=== PATIENT | female | born 2000 | race Caucasian/White ===

== ENCOUNTER 2021-10-22 15:15 | Emergency (ER) | payer OTHER ==
[2021-10-22] MEDS ORDERED: Sodium Chloride 0.9% 1000 ML 1,000 ML IV STA (15:35)
[2021-10-22] MEDS ORDERED: Sodium Chloride 0.9% 1000 ML 1,000 ML ONE (15:54)
[2021-10-22 16:00] LABS: Absolute Neutrophil Ct (ANC) 6.65 x10^3/uL (1.4-6.9); Basophil (Absolute #) 0.01 x10^3/uL (0-0.4); Eosinophil % 0.6 % (0.00-5.0); Eosinophil (Absolute #) 0.05 x10^3/uL (0-0.5); Hemoglobin 12.5 g/dL (12.0-16.0); Lymphocyte (Absolute #) 1.41 x10^3/uL (1.0-4.6); Lymphocytes % 16.1 % (24.0-44.0); Mean Cell Volume 90.9 fL (78-100); Mean Corpuscular Hemoglobin 31.6 pg (26-32); Mean Corpuscular Hgb Concent. 34.7 g/dL (32-36); Mean Platelet Volume 9.4 fL (7.5-11.0); Monocyte (Absolute #) 0.61 x10^3/uL (0.0-1.3); Platelet Count 225 x10^3/uL (150-450); Red Blood Count 3.96 x10^6/uL (4.1-5.4); Red Cell Distribution Width 12.3 % (11.5-14.0); White Blood Count 8.8 x10^3/uL (4.0-10.5)
[2021-10-22 16:04] LABS: Appearance CLEAR (CLEAR); Bilirubin NEGATIVE (NEGATIVE); Dipstick done @ ? MAIN LAB; Epithelial Cells RARE /HPF (FEW); Glucose NEGATIVE (NEGATIVE); Ketones NEGATIVE (NEGATIVE); Mucus MODERATE /HPF (NEGATIVE); Nitrite NEGATIVE (NEGATIVE); Ph 5.5 (5-6); Protein,Urine Dip TRACE (Negative); RBC NEGATIVE Ery/ul (0-5); Specific Gravity >=1.030 (1.005-1.025); Urobilinogen 0.2 mg/dL (0-1)
[2021-10-22 16:07] LABS: Urine Cultured Indicated? NO
[2021-10-22 16:14] LABS: ALBUMIN 4.2 g/dL (3.5-5.0); ALKALINE PHOSPHATASE 115 U/L (38-126); ANION GAP 13.2 MEQ/L (5-15); BLOOD UREA NITROGEN 10 mg/dL (7-17); CHLORIDE 104 mmol/L (98-107); Calcium 8.9 mg/dL (8.4-10.2); Carbon Dioxide 23 mmol/L (22-30); Creatinine 1 0.66 mg/dL (0.52-1.04); EST GLOMERULAR FILTRATION RATE > 60.0 ML/MIN; Glucose 112 mg/dL (74-106); Potassium 3.9 mmol/L (3.5-5.1); SGOT/AST 20 U/L (14-36); SGPT/ALT 14 U/L (0-35); SODIUM 137 mmol/L (137-145); Total Protein 7.3 g/dL (6.3-8.2)
--- NOTE | 2021-10-22 16:48 | XRAY ---
Exam: OB ultrasound less than 14 weeks from 10/22/2021. Comparison: None. Indication: Pelvic cramping in 21-year-old female who believes she is 6 weeks . Findings: Transabdominal images reveal a small gestational sac within the upper uterine segment with a mean diameter of 0.85 cm consistent with a gestational age of 5 weeks, 3 days plus or -3 days for an estimated due date of 06/21/2022. I do not see an intrauterine pole or heartbeat at this time. No definite fluid is seen within the lower endometrial canal. Both maternal ovaries appear of normal size, shape, and echogenicity. No abnormal adnexal mass or free intraperitoneal fluid is seen. Impression: 1. There appears to be a very small gestational sac within the upper uterine segment measuring a mean diameter 0.85 cm. No definite pole or cardiac activity is seen as of yet. Average gestational sac diameter suggests a gestational age of 5 weeks, 3 days. 2. The maternal ovaries appear unremarkable. 3. No free fluid is seen within the maternal cul-de-sac.
[2021-10-22 16:59] VITALS: BP 105/72
[2021-10-22 18:26] VITALS: PULSE 111; O2SAT 98
--- NOTE | 2021-10-24 | ERPHSYRPT ---
- History of Present Illness Time Seen by Provider: 10/22/21 15:49 Source: patient Exam Limitations: no limitations Patient Subjective Stated Complaint: Pt states "I called my ob and explained to them I have been getting dizzy and weak and they said I am probably dehydrated and to come to the ed. I am 6 and a half weeks and I have an 8 month old I am breast feeding." Triage Nursing Assessment: Pt presented alert and oriented X 3, skin wpd Pt ambulates with an upright steady gait, able to speak in clear full sentences pt in no apaprent respiratory distress. pt resting comfortably on the bed. Physician History: This's a 21 yr old pt. presenting to ED with c/o being intermittently dizzy, lightheaded since this am - She is a at 6.5 weeks of gestatio, has called OBGYN's office who have advised ED for IVVF as she may be dehydrated - reports abdominal cramping worse than normal but no abdominal pain - denies headache/complications with prior /urinary s/s/ vaginal discharge/vaginal bleeding - currently a 8 month old Timing/Duration: today Activites at Onset: none Quality: cramping Onset Location: abdominal pain Pain Radiation: none Severity of Pain-Max: mild Severity of Pain-Current: none Prior abdominal problems: none Sexual intercourse history: non-contributory Modifying Factors: Improves With: nothing Associated Symptoms: denies symptoms, , No nausea, No vomiting, No urinary frequency, No vaginal discharge Allergies/Adverse Reactions: No Known Drug Allergies Allergy (Unverified 10/22/21 15:30) Home Medications: Vit37/Iron/Folic Acid [Prenata Chewable Tablet] 1 each PO DAILY 10/22/21 [History] Hx Tetanus, Diphtheria Vaccination/Date Given: Yes Hx Influenza Vaccination/Date Given: No Hx Pneumococcal Vaccination/Date Given: No Travel Risk - International Travel Have you traveled outside of the country in past 3 weeks: No - Coronavirus Screening Are you exhibiting any of the following symptoms?: No Close contact with a COVID-19 positive Pt in past 14-21 Days: No - Vaccine Status Have you recieved a Covid-19 vaccination: Yes 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[employer] - Vaccination Dates Date of 2cond Vaccination (if applicable): 2020 - Review of Systems Constitutional: No Fever, No Chills, No Fatigue Eyes: No Discharge, No Eye Pain, No Vision Changes, No Double Vision Ears, Nose, & Throat: No Ear Pain, No Nose Discharge, No Throat Pain, No Throat Swelling, No Painful Swallowing Respiratory: No Cough, No Dyspnea, No Dyspnea on Exertion (MATUTE) Cardiac: No Chest Pain, No Edema, No Palpitations, No Syncope, No Orthopnea Abdominal/Gastrointestinal: No Abdominal Pain, No Nausea, No Vomiting, No Diarrhea, No Hematemesis, No Hematochezia, No Melena Genitourinary Symptoms: , No Dysuria, No Frequency, No Hematuria, No Hesitancy, No Vaginal Bleeding, No Vaginal Discharge, No Vaginal Itching Musculoskeletal: No Arthralgias, No Back Pain, No Joint Pain Skin: No Cellulitis, No Rash Neurological: No Dizziness, No Focal Weakness, No Gait Changes, No Headache Psychological: No Alcohol Abuse, No Drug Abuse Endocrine: No Symptoms Hematologic/Lymphatic: No Symptoms Immunological/Allergic: No Symptoms All Other Systems: Reviewed and Negative - Past Medical History Pertinent Past Medical History: No - Past Surgical History Past Surgical History: No - Social History Smoking Status: Former smoker Exposure to second hand smoke: No Drug Use: none Patient Lives Alone: No - Female History Hx Last Menstrual Period: 09/05/2021 Hx Now: Yes Expected Date of Delivery: 06/12/21 - Nursing Vital Signs Nursing Vital Signs: Initial Vital Signs Temperature 97.5 F 10/22/21 15:25 Pulse Rate 125 H 10/22/21 15:25 Respiratory Rate 22 10/22/21 15:25 Blood Pressure 125/83 10/22/21 15:25 O2 Sat by Pulse Oximetry 98 10/22/21 15:25 Pain Scale Pain Intensity 0 - Physical Exam General Appearance: no apparent distress Eye Exam: PERRL/EOMI, eyes nml inspection Ears, Nose, Throat Exam: normal ENT inspection, TMs normal, pharynx normal Neck Exam: normal inspection, non-tender, supple, full range of motion Respiratory Exam: normal breath sounds, lungs clear, No chest tenderness Cardiovascular Exam: regular rate/rhythm, normal heart sounds, normal peripheral pulses Gastrointestinal/Abdomen Exam: soft, normal bowel sounds, No tenderness Pelvic Exam: deferred Rectal Exam: deferred Back Exam: No CVA tenderness Extremity Exam: normal inspection, normal range of motion Neurologic Exam: alert, oriented x 3, cooperative, normal mood/affect, sensation nml Skin Exam: normal color, warm Lymphatic Exam: No adenopathy SpO2 Interpretation: normal SpO2: 98 O2 Delivery: Room Air Ordered Tests: Medication Summary Discontinued Medications Generic Name Dose Route Start Last Admin Trade Name Cliff PRN Reason Stop Dose Admin Sodium Chloride 1,000 mls @ 999 mls/hr 10/22/21 15:35 10/22/21 17:13 Sodium Chloride 0.9% 1000 Ml IV 10/22/21 16:35 Infused .Q1H1M STA Infusion Sodium Chloride Confirm 10/22/21 15:54 Sodium Chloride 0.9% 1000 Ml Administered 10/22/21 15:55 Dose 1,000 mls @ ud .ROUTE .[facility] Lab/Rad Data: Laboratory Result Diagrams 10/22/21 16:00 10/22/21 16:00 Laboratory Results 10/22/21 10/22/21 10/22/21 Range/Units 16:56 16:00 16:00 WBC 8.8 (4.0-10.5) x10^3/uL RBC 3.96 L (4.1-5.4) x10^6/uL Hgb 12.5 (12.0-16.0) g/dL Hct 36.0 (35-47) % MCV 90.9 (78-100) fL MCH 31.6 (26-32) pg MCHC 34.7 (32-36) g/dL RDW 12.3 (11.5-14.0) % Plt Count 225 (150-450) x10^3/uL MPV 9.4 (7.5-11.0) fL Gran % 76.0 H (36.0-66.0) % Immature Gran % (Auto) 0.2 (0.00-0.4) % Nucleat RBC Rel Count 0.0 (0.00-0.1) % Eos # (Auto) 0.05 (0-0.5) x10^3/uL Immature Gran # (Auto) 0.02 (0.00-0.03) x10^3u/L Absolute Lymphs (auto) 1.41 (1.0-4.6) x10^3/uL Absolute Monos (auto) 0.61 (0.0-1.3) x10^3/uL Absolute Nucleated RBC 0.00 (0.00-0.01) x10^3u/L Lymphocytes % 16.1 L (24.0-44.0) % Monocytes % 7.0 (0.0-12.0) % Eosinophils % 0.6 (0.00-5.0) % Basophils % 0.1 (0.0-0.4) % Absolute Granulocytes 6.65 (1.4-6.9) x10^3/uL Basophils # 0.01 (0-0.4) x10^3/uL Sodium 137 (137-145) mmol/L Potassium 3.9 (3.5-5.1) mmol/L Chloride 104 (98-107) mmol/L Carbon Dioxide 23 (22-30) mmol/L Anion Gap 13.2 (5-15) MEQ/L BUN 10 (7-17) mg/dL Creatinine 0.66 (0.52-1.04) mg/dL Estimated GFR > 60.0 ML/MIN Glucose 112 H (74-106) mg/dL Calcium 8.9 (8.4-10.2) mg/dL Total Bilirubin 0.30 (0.2-1.3) mg/dL AST 20 (14-36) U/L ALT 14 (0-35) U/L Alkaline Phosphatase 115 (38-126) U/L Serum Total Protein 7.3 (6.3-8.2) g/dL Albumin 4.2 (3.5-5.0) g/dL Beta HCG, Quant 6543.0 mIU/ml Serum , Qual (Negative) Urinalys Dipstick Clnc Urine Color (YELLOW) Urine Appearance (CLEAR) Urine pH (5-6) Ur Specific [place] (1.005-1.025) POC Urine Protein Conf (Negative) Urine Ketones (NEGATIVE) Urine Nitrite (NEGATIVE) Urine Bilirubin (NEGATIVE) Urine Urobilinogen (0-1) mg/dL Urine Leukocytes (NEGATIVE) Urine WBC (Auto) (0-5) /HPF Urine RBC (Auto) (0-2) /HPF U Epithel Cells (Auto) (FEW) /HPF Urine Bacteria (Auto) (NEGATIVE) /HPF Urine RBC (0-5) [place]/ul Urine Mucus (Auto) (NEGATIVE) /HPF Ur Culture Indicated? Urine Glucose (NEGATIVE) mg/dL 10/22/21 10/22/21 Range/Units 16:00 15:53 WBC (4.0-10.5) x10^3/uL RBC (4.1-5.4) x10^6/uL Hgb (12.0-16.0) g/dL Hct (35-47) % MCV (78-100) fL MCH (26-32) pg MCHC (32-36) g/dL RDW (11.5-14.0) % Plt Count (150-450) x10^3/uL MPV (7.5-11.0) fL Gran % (36.0-66.0) % Immature Gran % (Auto) (0.00-0.4) % Nucleat RBC Rel Count (0.00-0.1) % Eos # (Auto) (0-0.5) x10^3/uL Immature Gran # (Auto) (0.00-0.03) x10^3u/L Absolute Lymphs (auto) (1.0-4.6) x10^3/uL Absolute Monos (auto) (0.0-1.3) x10^3/uL Absolute Nucleated RBC (0.00-0.01) x10^3u/L Lymphocytes % (24.0-44.0) % Monocytes % (0.0-12.0) % Eosinophils % (0.00-5.0) % Basophils % (0.0-0.4) % Absolute Granulocytes (1.4-6.9) x10^3/uL Basophils # (0-0.4) x10^3/uL Sodium (137-145) mmol/L Potassium (3.5-5.1) mmol/L Chloride (98-107) mmol/L Carbon Dioxide (22-30) mmol/L Anion Gap (5-15) MEQ/L BUN (7-17) mg/dL Creatinine (0.52-1.04) mg/dL Estimated GFR ML/MIN Glucose (74-106) mg/dL Calcium (8.4-10.2) mg/dL Total Bilirubin (0.2-1.3) mg/dL AST (14-36) U/L ALT (0-35) U/L Alkaline Phosphatase (38-126) U/L Serum Total Protein (6.3-8.2) g/dL Albumin (3.5-5.0) g/dL Beta HCG, Quant mIU/ml Serum , Qual POSITIVE (Negative) Urinalys Dipstick Clnc MAIN LAB Urine Color YELLOW (YELLOW) Urine Appearance CLEAR (CLEAR) Urine pH 5.5 (5-6) Ur Specific [place] >=1.030 (1.005-1.025) POC Urine Protein Conf TRACE (Negative) Urine Ketones NEGATIVE (NEGATIVE) Urine Nitrite NEGATIVE (NEGATIVE) Urine Bilirubin NEGATIVE (NEGATIVE) Urine Urobilinogen 0.2 (0-1) mg/dL Urine Leukocytes NEGATIVE (NEGATIVE) Urine WBC (Auto) NONE (0-5) /HPF Urine RBC (Auto) NONE (0-2) /HPF U Epithel Cells (Auto) RARE (FEW) /HPF Urine Bacteria (Auto) NONE (NEGATIVE) /HPF Urine RBC NEGATIVE (0-5) [place]/ul Urine Mucus (Auto) MODERATE (NEGATIVE) /HPF Ur Culture Indicated? NO Urine Glucose NEGATIVE (NEGATIVE) mg/dL - Progress Progress: improved (improved), re-examined Progress Note: 1) at 6.5 weeks gestation with abdominal cramping and lightheadedness - IVF bolus given - OB USG- shows no ectopic - pt is B+ - CBc, BMP< UA- WNL - quantitative hcg 6543 - D/w obgyn - has no further recommendations - pt. to f/u with obgyn as an outpatient - - Advised close f/u with pcp in am - Advised to return for any new or worsening s/s or any concern at all - Pt. voiced understanding and had no further questions. - Departure Clinical Impression: Dehydration, Abdominal cramping affecting Condition: Stable Critical Care Time: No Referrals: DARSHAN AYALA DO [Primary Care Provider] - Follow up/PCP as directed Instructions: Dehydration, Child (DC)
== END 2021-10-22 18:45 | disposition home or self-care (01) ==
LOC: ED 15:15
DX: O26.891 Other specified pregnancy related conditions, first trimester (principal); Z3A.01 Less than 8 weeks gestation of pregnancy; R10.9 Unspecified abdominal pain; E86.0 Dehydration; R42 Dizziness and giddiness
CPT/HCPCS: 36000; 36415; 76801; 80053; 81015; 84702; 84703; 85025; 96360; 99284

== ENCOUNTER 2021-11-19 19:44 | Emergency (ER) | payer OTHER ==
--- NOTE | 2021-11-19 19:55 | ERPHSYRPT ---
- History of Present Illness Time Seen by Provider: 11/19/21 19:55 Source: patient, family Exam Limitations: no limitations Physician History: This is a 21-year-old white female who is A1 and presents at approximately 9 weeks with vaginal spotting for the last 2 to 3 days. Today, she wiped earlier in the day and there was fair amount of blood present. The bleeding stopped but then this afternoon/early evening patient was sitting down and felt a "gush" of blood. 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 On 10/22/2021 there was a single gestational sac within the upper uterine segment. There was no abnormal adnexal masses at that time. Patient's hemoglobin was normal within the last month. On 10/31/2021 patient's quantitative beta-hCG value was 28,980. Patient has been having mild suprapubic cramping intermittently in the last 2 to 3 days. Timing/Duration: today Quality: cramping Onset Location: suprapubic Pain Radiation: none Severity of Pain-Max: mild Severity of Pain-Current: none Prior abdominal problems: none Sexual intercourse history: non-contributory Modifying Factors: Improves With: nothing Associated Symptoms: vaginal discharge (Vaginal bleeding) Allergies/Adverse Reactions: No Known Drug Allergies Allergy (Unverified 10/22/21 15:30) Home Medications: Vit37/Iron/Folic Acid [Prenata Chewable Tablet] 1 each PO DAILY 10/22/21 [History] Hx Tetanus, Diphtheria Vaccination/Date Given: Yes Hx Influenza Vaccination/Date Given: No Hx Pneumococcal Vaccination/Date Given: No Travel Risk - International Travel Have you traveled outside of the country in past 3 weeks: No - Coronavirus Screening Are you exhibiting any of the following symptoms?: No Close contact with a COVID-19 positive Pt in past 14-21 Days: No - Vaccine Status Have you recieved a Covid-19 vaccination: Yes 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[employer] - Vaccination Dates Date of 2cond Vaccination (if applicable): 2020 - Review of Systems Constitutional: No Symptoms Eyes: No Symptoms Ears, Nose, & Throat: No Symptoms Respiratory: No Symptoms Cardiac: No Symptoms Abdominal/Gastrointestinal: No Symptoms Genitourinary Symptoms: Vaginal Bleeding Musculoskeletal: No Symptoms Skin: No Symptoms Neurological: No Symptoms Psychological: No Symptoms Endocrine: No Symptoms Hematologic/Lymphatic: No Symptoms Immunological/Allergic: No Symptoms All Other Systems: Reviewed and Negative - Past Medical History Pertinent Past Medical History: No - Past Surgical History Past Surgical History: No - Social History Smoking Status: Former smoker Exposure to second hand smoke: No Drug Use: none Patient Lives Alone: No - Nursing Vital Signs Nursing Vital Signs: Initial Vital Signs Temperature 97.4 F 11/19/21 19:51 Pulse Rate 89 11/19/21 19:51 Respiratory Rate 18 11/19/21 19:51 Blood Pressure 133/93 11/19/21 19:51 O2 Sat by Pulse Oximetry 100 11/19/21 19:51 Pain Scale Pain Intensity 4 - Physical Exam General Appearance: no apparent distress, alert, anxiety Eye Exam: PERRL/EOMI, eyes nml inspection Ears, Nose, Throat Exam: normal ENT inspection, moist mucous membranes Neck Exam: normal inspection, non-tender, supple, full range of motion Respiratory Exam: normal breath sounds, lungs clear, airway intact, No chest tenderness, No respiratory distress Cardiovascular Exam: regular rate/rhythm, normal heart sounds, normal peripheral pulses Gastrointestinal/Abdomen Exam: soft, normal bowel sounds, No tenderness Pelvic Exam: not done Rectal Exam: not done Back Exam: normal inspection, normal range of motion, No CVA tenderness, No vertebral tenderness Extremity Exam: normal inspection, normal range of motion, pelvis stable Neurologic Exam: alert, oriented x 3, cooperative, juice tester II-XII nml as tested, nor mal mood/affect, nml cerebellar function, nml station & gait, sensation nml Skin Exam: normal color, warm, dry Lymphatic Exam: No adenopathy SpO2 Interpretation: normal O2 Delivery: Room Air - Course Nursing assessment & vital signs reviewed: Yes Ordered Tests: Active Orders 24 hr Category Date Time Status CBC W DIFF Stat Lab 11/19/21 20:14 Completed CMP Stat Lab 11/19/21 20:14 Completed CULTURE,URINE Stat Lab 11/19/21 20:16 Received HCG, Quantitative (Inhouse) Stat Lab 11/19/21 20:14 Completed UA W/RFX CULTURE Stat Lab 11/19/21 20:16 Completed Medication Summary Discontinued Medications Generic Name Dose Route Start Last Admin Trade Name Freq PRN Reason Stop Dose Admin Cephalexin HCl 500 mg 11/19/21 20:59 11/19/21 21:08 Cephalexin Mh500 Mg Capsule PO 11/19/21 21:00 500 mg STAT ONE Administration Cephalexin HCl Confirm 11/19/21 21:06 Cephalexin Mh500 Mg Capsule Administered 11/19/21 21:07 Dose 500 mg .ROUTE .[facility] ONE Lab/Rad Data: Laboratory Result Diagrams 11/19/21 20:14 11/19/21 20:14 Laboratory Results 11/19/21 11/19/21 11/19/21 Range/Units 20:16 20:14 20:14 WBC 8.3 (4.0-10.5) x10^3/uL RBC 4.20 (4.1-5.4) x10^6/uL Hgb 13.2 (12.0-16.0) g/dL Hct 38.8 (35-47) % MCV 92.4 (78-100) fL MCH 31.4 (26-32) pg MCHC 34.0 (32-36) g/dL RDW 11.9 (11.5-14.0) % Plt Count 245 (150-450) x10^3/uL MPV 9.5 (7.5-11.0) fL Gran % 56.8 (36.0-66.0) % Immature Gran % (Auto) 0.2 (0.00-0.4) % Nucleat RBC Rel Count 0.0 (0.00-0.1) % Eos # (Auto) 0.10 (0-0.5) x10^3/uL Immature Gran # (Auto) 0.02 (0.00-0.03) x10^3u/L Absolute Lymphs (auto) 2.94 (1.0-4.6) x10^3/uL Absolute Monos (auto) 0.50 (0.0-1.3) x10^3/uL Absolute Nucleated RBC 0.00 (0.00-0.01) x10^3u/L Lymphocytes % 35.6 (24.0-44.0) % Monocytes % 6.0 (0.0-12.0) % Eosinophils % 1.2 (0.00-5.0) % Basophils % 0.2 (0.0-0.4) % Absolute Granulocytes 4.69 (1.4-6.9) x10^3/uL Basophils # 0.02 (0-0.4) x10^3/uL Sodium 135 L (137-145) mmol/L Potassium 4.1 (3.5-5.1) mmol/L Chloride 103 (98-107) mmol/L Carbon Dioxide 21 L (22-30) mmol/L Anion Gap 15.1 H (5-15) MEQ/L BUN 10 (7-17) mg/dL Creatinine 0.51 L (0.52-1.04) mg/dL Estimated GFR > 60.0 ML/MIN Glucose 109 H (74-106) mg/dL Calcium 9.5 (8.4-10.2) mg/dL Total Bilirubin 0.30 (0.2-1.3) mg/dL AST 18 (14-36) U/L ALT 16 (0-35) U/L Alkaline Phosphatase 99 (38-126) U/L Serum Total Protein 7.3 (6.3-8.2) g/dL Albumin 4.3 (3.5-5.0) g/dL Beta HCG, Quant 81233 mIU/ml Urinalys Dipstick Clnc MAIN LAB Urine Color YELLOW (YELLOW) Urine Appearance CLEAR (CLEAR) Urine pH 5.5 (5-6) Ur Specific [place] >=1.030 (1.005-1.025) POC Urine Protein Conf NEGATIVE (Negative) Urine Ketones NEGATIVE (NEGATIVE) Urine Nitrite NEGATIVE (NEGATIVE) Urine Bilirubin NEGATIVE (NEGATIVE) Urine Urobilinogen 0.2 (0-1) mg/dL Urine Leukocytes TRACE (NEGATIVE) Urine WBC (Auto) 3-5 (0-5) /HPF Urine RBC (Auto) 11-15 (0-2) /HPF U Hyaline Cast (Auto) 0-2 (0-2) /LPF U Epithel Cells (Auto) FEW (FEW) /HPF Urine Bacteria (Auto) RARE (NEGATIVE) /HPF Urine RBC LARGE (0-5) [place]/ul Urine Mucus (Auto) SLIGHT (NEGATIVE) /HPF Ur Culture Indicated? YES Urine Glucose NEGATIVE (NEGATIVE) mg/dL - Progress Progress: re-examined, unchanged Air Movement: good Progress Note: 11/19/21 22:[address] Wells the patient's regulatory compliance officer. I informed him of the results of the work-up. He will see the patient at her appointment date and tariq wilson on 11/21/2021 Blood Culture(s) Obtained: No Antibiotics given: Yes Counseled pt/family regarding: lab results, diagnosis, need for follow-up - Departure Departure Disposition: Home Clinical Impression: Vaginal bleeding, UTI (urinary tract infection) Condition: Stable Critical Care Time: No Referrals: DARSHAN WELLS DO [Primary Care Provider] - Follow up/PCP as directed Additional Instructions: Drink plenty of fluids. Avoid sexual intercourse until after you are evaluated by your regulatory compliance officer. Rest over the next 48 hours. Keep your appointment on with your regulatory compliance officer. Take your antibiotics as prescribed. Prescriptions: Cephalexin Mh 500 mg [Keflex 500 mg] 500 mg PO TID #15 cap
[2021-11-19 20:14] LABS: Absolute Neutrophil Ct (ANC) 4.69 x10^3/uL (1.4-6.9); Basophil (Absolute #) 0.02 x10^3/uL (0-0.4); Eosinophil % 1.2 % (0.00-5.0); Hematocrit 38.8 % (35-47); Hemoglobin 13.2 g/dL (12.0-16.0); Lymphocyte (Absolute #) 2.94 x10^3/uL (1.0-4.6); Lymphocytes % 35.6 % (24.0-44.0); Mean Cell Volume 92.4 fL (78-100); Mean Corpuscular Hemoglobin 31.4 pg (26-32); Mean Platelet Volume 9.5 fL (7.5-11.0); Neutrophil % 56.8 % (36.0-66.0); Platelet Count 245 x10^3/uL (150-450); Red Cell Distribution Width 11.9 % (11.5-14.0); White Blood Count 8.3 x10^3/uL (4.0-10.5)
[2021-11-19 20:32] LABS: Appearance CLEAR (CLEAR); Bilirubin NEGATIVE (NEGATIVE); Glucose NEGATIVE (NEGATIVE); Ketones NEGATIVE (NEGATIVE)
[2021-11-19 20:33] LABS: Dipstick done @ ? MAIN LAB; Nitrite NEGATIVE (NEGATIVE); Ph 5.5 (5-6); Protein,Urine Dip NEGATIVE (Negative); RBC LARGE Ery/ul (0-5); Specific Gravity >=1.030 (1.005-1.025); Urobilinogen 0.2 mg/dL (0-1)
[2021-11-19 20:34] LABS: Bacteria RARE /HPF (NEGATIVE); Epithelial Cells FEW /HPF (FEW); Hyaline Casts 0-2 /LPF (0-2); Mucus SLIGHT /HPF (NEGATIVE)
[2021-11-19 20:37] LABS: Urine Cultured Indicated? YES
[2021-11-19 20:53] LABS: ALBUMIN 4.3 g/dL (3.5-5.0); ALKALINE PHOSPHATASE 99 U/L (38-126); ANION GAP 15.1 MEQ/L (5-15); BLOOD UREA NITROGEN 10 mg/dL (7-17); CHLORIDE 103 mmol/L (98-107); Calcium 9.5 mg/dL (8.4-10.2); Carbon Dioxide 21 mmol/L (22-30); Creatinine 1 0.51 mg/dL (0.52-1.04); EST GLOMERULAR FILTRATION RATE > 60.0 ML/MIN; Glucose 109 mg/dL (74-106); Potassium 4.1 mmol/L (3.5-5.1); SGOT/AST 18 U/L (14-36); SGPT/ALT 16 U/L (0-35); SODIUM 135 mmol/L (137-145); Total Protein 7.3 g/dL (6.3-8.2)
[2021-11-19] MEDS ORDERED: KEFLEX 500 MG PO ONE (20:59)
[2021-11-19] MEDS ORDERED: KEFLEX 500 MG ONE (21:06)
[2021-11-19 21:36] LABS: HCG, Quantitative (Inhouse) 46464 mIU/ml
[2021-11-19 22:19] VITALS: BP 136/87; PULSE 89; O2SAT 98
== END 2021-11-19 22:19 | disposition home or self-care (01) ==
LOC: ED 19:44
DX: O20.9 Hemorrhage in early pregnancy, unspecified (principal); O23.41 Unspecified infection of urinary tract in pregnancy, first trimester; N39.0 Urinary tract infection, site not specified; Z3A.09 9 weeks gestation of pregnancy
CPT/HCPCS: 36415; 80053; 81015; 84702; 85025; 87086; 99283; A9270-GY

== ENCOUNTER 2021-11-27 06:33 | Day surgery (SDC) | payer OTHER ==
[2021-11-27] MEDS ORDERED: CEFAZOLIN 2 GM-D5W BAG** 2 GM/50 ML ML IV SCH (07:00)
[2021-11-27] MEDS ORDERED: Lactated Ringers 1,000 ML IV SCH (07:00)
[2021-11-27] MEDS ORDERED: CEFAZOLIN 2 GM-D5W BAG** 2 GM/50 ML ML IV ONE (07:14)
[2021-11-27] MEDS ORDERED: Lactated Ringers 1,000 ML IV ONE (07:14)
[2021-11-27] MEDS ORDERED: Zofran 4 MG/2 ML VIAL ONE (08:20)
[2021-11-27] MEDS ORDERED: SUBLIMAZE 100 MCG/2 ML ONE (08:20)
[2021-11-27] MEDS ORDERED: DIPRIVAN 200 MG/20 ML IV ONE (08:20)
[2021-11-27] MEDS ORDERED: Xylocaine-Mpf 2% 5 Ml Vial ONE (08:20)
[2021-11-27] MEDS ORDERED: Decadron 4 MG INJ ONE (08:20)
[2021-11-27] MEDS ORDERED: Versed 2 MG/2 ML Injection ONE (08:21)
[2021-11-27 10:12] VITALS: O2SAT 100
[2021-11-27 10:22] VITALS: BP 113/67; PULSE 77
--- NOTE | 2021-11-28 08:40 | OP ---
SURGERY DATE/TIME: 11/27/2021 0847 PREOPERATIVE DIAGNOSIS: Missed at approximately 7 weeks gestation. POSTOPERATIVE DIAGNOSIS: Missed at approximately 7 weeks gestation. PROCEDURE: Suction D&C. SURGEON: Ishan Wells D.O. STOCK COUNTER: Aleyda Steiner bottle house quality control technician. ANESTHESIA: General. ESTIMATED BLOOD LOSS: Minimal. COMPLICATIONS: None. INDICATIONS: The risks, benefits, indications and alternatives of the procedure were reviewed with the patient prior to procedure. The patient understood the risk of infection, bleeding, bowel injury, bladder injury and uterine perforation associated with this surgery and she desires to have this surgery as a possible means to alleviate her current medical condition. DESCRIPTION OF PROCEDURE AND FINDINGS: At this point the patient is taken to the operating room, given general sedation, placed in the dorsal lithotomy position, prepped and draped in the usual sterile fashion. A weighted speculum is then placed in the patient's vagina and the anterior lip of the cervix is grasped with a single tooth tenaculum. Endocervical dilators were advanced through the endocervical canal as a means to dilate the cervix. At this point, a #7 curved suction Vacurette was then placed into the fundus where the suction machine was turned on and the entire uterine content of products of conception was removed without complication. After complete suctioning, a curette was then placed into the fundus of the uterus and curettage was performed in all quadrants of the uterus retrieving the remaining tissue. From this point hemostasis was obtained. From this point all instruments were removed from the patient's vaginal region. The patient was taken out of the dorsal lithotomy position and was taken out of anesthesia and was then taken to the recovery room in stable condition. All instruments and laps were accounted for x2.
== END 2021-11-27 10:35 | disposition home or self-care (01) ==
LOC: SDC 06:33
PROVIDERS: ATTEND Obstetrics & Gynecology
DX: O02.1 Missed abortion (principal)
CPT/HCPCS: 36415; 86901; J0690; J1100; J2250; J2405; J2704; J3010

== ENCOUNTER 2022-03-11 10:20 | Emergency (ER) | payer OTHER ==
--- NOTE | 2022-03-11 10:38 | ERPHSYRPT ---
- History of Present Illness Time Seen by Provider: 03/11/22 10:33 Source: patient Exam Limitations: no limitations Physician History: Patient is a 21-year-old female G6, P2 M2 presents emergency department for evaluation of vaginal discharge associated with vague intermittent pelvic cramping. Patient states she is currently 11 weeks . Patient states vaginal discharge started 1 to 2 days ago. Patient's last miscarriage occurred at approximately 10 weeks gestational age. Patient has not contacted her OB regarding this discharge. No trauma. No fever. No diarrhea. No nausea or vomiting. No rash. Symptoms are mild to moderate in intensity. No specific worsening improving factors. Patient voices no other complaints or concerns at this time. Portions of this note were created with voice recognition technology. There may be grammatical, spelling, punctuation or sound alike errors Timing/Duration: day(s) (1 to 2 days.) Severity: moderate Modifying Factors: Improves With: nothing Associated Symptoms: denies symptoms Allergies/Adverse Reactions: No Known Drug Allergies Allergy (Verified 03/11/22 10:32) Home Medications: Levothyroxine Sodium 25 Mcg [Synthroid 25 Mcg] 1 tab PO DAILY 03/11/22 [History] Pnv No.121/Iron/Folic Acid [ Multivitamin Tablet] 1 tab PO DAILY 03/11/22 [History] Hx Tetanus, Diphtheria Vaccination/Date Given: Yes Hx Influenza Vaccination/Date Given: No Hx Pneumococcal Vaccination/Date Given: No Travel Risk - Vaccine Status Have you recieved a Covid-19 vaccination: Yes 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[employer] - Vaccination Dates Date of 2cond Vaccination (if applicable): 2020 - Review of Systems Constitutional: No Symptoms, No Fever, No Chills Eyes: No Symptoms Ears, Nose, & Throat: No Symptoms Respiratory: No Symptoms, No Cough, No Dyspnea Cardiac: No Symptoms, No Chest Pain, No Edema, No Syncope Abdominal/Gastrointestinal: No Symptoms, No Abdominal Pain, No Nausea, No Vomiting, No Diarrhea Genitourinary Symptoms: No Symptoms, No Dysuria Musculoskeletal: No Symptoms, No Back Pain, No Neck Pain Skin: No Symptoms, No Rash Neurological: No Symptoms, No Dizziness, No Focal Weakness, No Sensory Changes Psychological: No Symptoms Endocrine: No Symptoms Hematologic/Lymphatic: No Symptoms Immunological/Allergic: No Symptoms All Other Systems: Reviewed and Negative - Past Medical History Pertinent Past Medical History: No Neurological History: No Pertinent History ENT History: No Pertinent History Cardiac History: No Pertinent History Respiratory History: No Pertinent History Endocrine Medical History: No Pertinent History Musculoskeletal History: No Pertinent History GI Medical History: No Pertinent History History: No Pertinent History Psycho-Social History: No Pertinent History Female Reproductive Disorders: No Pertinent History - Past Surgical History Past Surgical History: Yes Neuro Surgical History: No Pertinent History Cardiac: No Pertinent History Respiratory: No Pertinent History Gastrointestinal: No Pertinent History Genitourinary: No Pertinent History Musculoskeletal: No Pertinent History Female Surgical History: No Pertinent History Other Surgical History: wisdom teeth - Social History Smoking Status: Former smoker Exposure to second hand smoke: Yes Drug Use: none Patient Lives Alone: No - Nursing Vital Signs Nursing Vital Signs: Initial Vital Signs Temperature 97.6 F 03/11/22 10:20 Pulse Rate 112 H 03/11/22 10:20 Respiratory Rate 18 03/11/22 10:20 Blood Pressure 126/85 03/11/22 10:20 O2 Sat by Pulse Oximetry 100 03/11/22 10:20 Pain Scale Pain Intensity 0 - Physical Exam General Appearance: no apparent distress, alert Eye Exam: PERRL/EOMI, eyes nml inspection Ears, Nose, Throat Exam: normal ENT inspection, TMs normal, pharynx normal, moist mucous membranes Neck Exam: normal inspection, non-tender, supple, full range of motion Respiratory Exam: normal breath sounds, lungs clear, airway intact, No respiratory distress Cardiovascular Exam: regular rate/rhythm, normal heart sounds, normal peripheral pulses Gastrointestinal/Abdomen Exam: soft, normal bowel sounds, No tenderness, No mass Pelvic Exam: normal external exam, other (Scant brownish vaginal discharge. Cervical os closed), No adnexal tenderness, No adnexal mass, No cervical motion tenderness Back Exam: normal inspection, normal range of motion, No CVA tenderness, No vertebral tenderness Extremity Exam: normal inspection, normal range of motion, pelvis stable Neurologic Exam: alert, oriented x 3, cooperative, normal mood/affect, nml cerebellar function, nml station & gait, sensation nml, No motor deficits Skin Exam: normal color, warm, dry, No rash Lymphatic Exam: No adenopathy SpO2 Interpretation: normal SpO2: 99 O2 Delivery: Room Air - Course Nursing assessment & vital signs reviewed: Yes - Radiology Ultrasound Exam OB Ultrasound: tele radiology report (IUP. Heart rate 165. Gestational age 11 weeks 2 days. No obvious abnormalities observed on today's ultrasound.) Ordered Tests: Active Orders 24 hr Category Date Time Status OB <14 WKS 1ST GESTATION [US] Stat Exams 03/11/22 10:35 Completed CBC W DIFF Stat Lab 03/11/22 10:51 Completed CMP Stat Lab 03/11/22 10:51 Completed CULTURE,URINE Stat Lab 03/11/22 10:32 Received HCG, Quantitative (Inhouse) Stat Lab 03/11/22 10:51 Completed UA W/RFX UR CULTURE Stat Lab 03/11/22 10:32 Completed Wet Prep Stat Lab 03/11/22 10:51 Completed Lab/Rad Data: Laboratory Result Diagrams 03/11/22 10:51 03/11/22 10:51 Laboratory Results 03/11/22 03/11/22 03/11/22 Range/Units 10:51 10:51 10:51 WBC 6.8 (4.0-10.5) x10^3/uL RBC 4.35 (4.1-5.4) x10^6/uL Hgb 13.6 (12.0-16.0) g/dL Hct 39.1 (35-47) % MCV 89.9 (78-100) fL MCH 31.3 (26-32) pg MCHC 34.8 (32-36) g/dL RDW 11.9 (11.5-14.0) % Plt Count 253 (150-450) x10^3/uL MPV 10.1 (7.5-11.0) fL Gran % 65.9 (36.0-66.0) % Immature Gran % (Auto) 0.4 (0.00-0.4) % Nucleat RBC Rel Count 0.0 (0.00-0.1) % Eos # (Auto) 0.06 (0-0.5) x10^3/uL Immature Gran # (Auto) 0.03 (0.00-0.03) x10^3u/L Absolute Lymphs (auto) 1.79 (1.0-4.6) x10^3/uL Absolute Monos (auto) 0.40 (0.0-1.3) x10^3/uL Absolute Nucleated RBC 0.00 (0.00-0.01) x10^3u/L Lymphocytes % 26.5 (24.0-44.0) % Monocytes % 5.9 (0.0-12.0) % Eosinophils % 0.9 (0.00-5.0) % Basophils % 0.4 (0.0-0.4) % Absolute Granulocytes 4.45 (1.4-6.9) x10^3/uL Basophils # 0.03 (0-0.4) x10^3/uL Sodium 136 L (137-145) mmol/L Potassium 4.2 (3.5-5.1) mmol/L Chloride 107 (98-107) mmol/L Carbon Dioxide 22 (22-30) mmol/L Anion Gap 11.1 (5-15) MEQ/L BUN 8 (7-17) mg/dL Creatinine 0.52 (0.52-1.04) mg/dL Estimated GFR > 60.0 ML/MIN Glucose 94 (74-106) mg/dL Calcium 9.0 (8.4-10.2) mg/dL Total Bilirubin 0.30 (0.2-1.3) mg/dL AST 20 (14-36) U/L ALT 14 (0-35) U/L Alkaline Phosphatase 72 (38-126) U/L Serum Total Protein 7.2 (6.3-8.2) g/dL Albumin 4.0 (3.5-5.0) g/dL Beta HCG, Quant mIU/ml Urine Color (Yellow) Urine Appearance (Clear) Urine pH (4.6-8.0) Ur Specific [place] (1.005-1.030) Urine Protein (Negative) Urine Glucose (UA) (Negative) mg/dL Urine Ketones (Negative) Urine Blood (Negative) Urine Nitrite (Negative) Urine Bilirubin (Negative) Urine Urobilinogen (0.2) mg/dL Ur Leukocyte Esterase (Negative) U Hyaline Cast (Auto) (0-2) /LPF Urine Microscopic RBC (0-5) /HPF Urine Microscopic WBC (0-5) /HPF Ur Epithelial Cells (None Seen) /HPF Urine Bacteria (None Seen) /HPF Urine Culture Reflexed (NO) WBC (Wet Prep) Few RBC (Wet Prep) Moderate Epi Cells (Wet Prep) Rare Bacteria (Wet Prep) Moderate Clue Cells (Wet Prep) None Seen Trichomonas (Wet Prep) None Seen Budding Yeast (Wet Prp) None Seen ABO Group Rh Factor Antibody Screen (NEGATIVE) 03/11/22 03/11/22 03/11/22 Range/Units 10:51 10:51 10:32 WBC (4.0-10.5) x10^3/uL RBC (4.1-5.4) x10^6/uL Hgb (12.0-16.0) g/dL Hct (35-47) % MCV (78-100) fL MCH (26-32) pg MCHC (32-36) g/dL RDW (11.5-14.0) % Plt Count (150-450) x10^3/uL MPV (7.5-11.0) fL Gran % (36.0-66.0) % Immature Gran % (Auto) (0.00-0.4) % Nucleat RBC Rel Count (0.00-0.1) % Eos # (Auto) (0-0.5) x10^3/uL Immature Gran # (Auto) (0.00-0.03) x10^3u/L Absolute Lymphs (auto) (1.0-4.6) x10^3/uL Absolute Monos (auto) (0.0-1.3) x10^3/uL Absolute Nucleated RBC (0.00-0.01) x10^3u/L Lymphocytes % (24.0-44.0) % Monocytes % (0.0-12.0) % Eosinophils % (0.00-5.0) % Basophils % (0.0-0.4) % Absolute Granulocytes (1.4-6.9) x10^3/uL Basophils # (0-0.4) x10^3/uL Sodium (137-145) mmol/L Potassium (3.5-5.1) mmol/L Chloride (98-107) mmol/L Carbon Dioxide (22-30) mmol/L Anion Gap (5-15) MEQ/L BUN (7-17) mg/dL Creatinine (0.52-1.04) mg/dL Estimated GFR ML/MIN Glucose (74-106) mg/dL Calcium (8.4-10.2) mg/dL Total Bilirubin (0.2-1.3) mg/dL AST (14-36) U/L ALT (0-35) U/L Alkaline Phosphatase (38-126) U/L Serum Total Protein (6.3-8.2) g/dL Albumin (3.5-5.0) g/dL Beta HCG, Quant 648440 mIU/ml Urine Color Dark Yellow A (Yellow) Urine Appearance Clear (Clear) Urine pH 5.5 (4.6-8.0) Ur Specific [place] >=1.030 A (1.005-1.030) Urine Protein 30 (Negative) Urine Glucose (UA) Negative (Negative) mg/dL Urine Ketones Trace A (Negative) Urine Blood Small A (Negative) Urine Nitrite Negative (Negative) Urine Bilirubin Negative (Negative) Urine Urobilinogen 1.0 A (0.2) mg/dL Ur Leukocyte Esterase Negative (Negative) U Hyaline Cast (Auto) 3-5 A (0-2) /LPF Urine Microscopic RBC 0-2 (0-5) /HPF Urine Microscopic WBC 6-10 A (0-5) /HPF Ur Epithelial Cells Few (None Seen) /HPF Urine Bacteria Rare A (None Seen) /HPF Urine Culture Reflexed YES (NO) WBC (Wet Prep) RBC (Wet Prep) Epi Cells (Wet Prep) Bacteria (Wet Prep) Clue Cells (Wet Prep) Trichomonas (Wet Prep) Budding Yeast (Wet Prp) ABO Group B Rh Factor POSITIVE Antibody Screen NEGATIVE (NEGATIVE) - Progress Progress: improved Progress Note: Patient reassessed. She is resting comfortably. No pain. Vital stable. Studies ordered include CBC, CMP, urinalysis, GC chlamydia, beta quant, type and screen, urinalysis, wet prep and an ultrasound. CBC is essentially no nremarkable. Urinalysis reveals a urinary tract infection. Type and screen was performed. Patient is Rh+. No indication for RhoGAM. Wet prep is negative. No infections observed. Ultrasound shows a viable fetus with normal findings per cake knocker.. Formal report pending. GC chlamydia results and beta quant pending. We will contact Dr. Armas and notify him of results. 03/11/22 11:46 Beta quant is within normal limits for duration. 03/11/22 12:33 Ultrasound shows a single viable intrauterine . 11 weeks 2 days with a heart rate of 165. 03/11/22 12:[address] Wells. We discussed laboratory and imaging findings as well as physical exam findings. Patient has a urinary tract infection. A prescription for Macrobid was forwarded to patient's pharmacy. Will discharge home. GC chlamydia pending. We will notify patient of findings when findings become available to us. Patient agrees to pickle cutter her antibiotic medication today. She will call office for a reevaluation. Portions of this note were created with voice recognition technology. There may be grammatical, spelling, punctuation or sound alike errors 03/11/22 12:41 Patient symptoms are acute. Symptoms are mild to moderate in intensity. The complexity of patient's complaints is mild to moderate. Patient has no significant comorbidities to contribute to her current problems. However patient has had miscarriages in the past. Level of EM service provided as mo derate to high. Problems observed are twofold. One is a urinary tract infection. #2 abnormal vaginal discharge in . The amount and complexity of data reviewed and analyzed is moderate in amount and complexity. Risks of complications as well as morbidity and mortality are moderate. No critical care time. The patient served as an independent historian. No input from family friends or the like Portions of this note were created with voice recognition technology. There may be grammatical, spelling, punctuation or sound alike errors 03/11/22 12:44 Discussed with : Ligia Counseled pt/family regarding: lab results, diagnosis, need for follow-up, rad results - Departure Departure Disposition: Home Clinical Impression: UTI (urinary tract infection), Vaginal discharge during Condition: Stable Critical Care Time: No Referrals: DOCTOR,NO FAMILY [Primary Care Provider] - Follow up/PCP as directed DARSHAN WELLS DO [ACTIVE STAFF] - Follow up/PCP as directed Additional Instructions: Discharge/Care Plan EJBIPIN CORTES was seen on 03/11/22 in the Emergency Room. The patient was counseled regarding Diagnosis,Lab results, Imaging studies, need for follow up and when to return to the Emergency Room. Prescriptions given: Discharge Note I have spoken with the patient and/or caregivers. I have explained the patient's condition, diagnosis and treatment plan based on the information available to me at this time. I have answered the patient's and/or caregiver's questions and addressed any concerns. The patient and/or caregivers have as good understanding of the patient's diagnosis, condition and treatment plan as can be expected at this point. The vital signs have been stable. The patient's condition is stable and appropriate for discharge from the emergency department. The patient will pursue further outpatient evaluation with the primary care physician or other designated or consulting physician as outlined in the discharge instructions. The patient and/or caregivers are agreeable to this plan of care and follow-up instructions have been explained in detail. The patient and/or caregivers have received these instruction. The patient/and or caregivers are aware that any significant change in condition or worsening of symptoms should prompt an immediate return to this or the closest emergency department or call 911. Prescriptions: Nitrofurantoin Macro 100 mg [Macrobid 100MG Capsule] 100 mg PO BID 7 Days #14 cap
[2022-03-11 10:39] VITALS: O2SAT 99
[2022-03-11 11:14] LABS: BLOOD UREA NITROGEN 8 mg/dL (7-17); Carbon Dioxide 22 mmol/L (22-30); Glucose 94 mg/dL (74-106); Potassium 4.2 mmol/L (3.5-5.1); SGOT/AST 20 U/L (14-36); Total Protein 7.2 g/dL (6.3-8.2)
[2022-03-11 11:21] LABS: ALKALINE PHOSPHATASE 72 U/L (38-126); ANION GAP 11.1 MEQ/L (5-15); CHLORIDE 107 mmol/L (98-107); Creatinine 1 0.52 mg/dL (0.52-1.04); EST GLOMERULAR FILTRATION RATE > 60.0 ML/MIN; SGPT/ALT 14 U/L (0-35); SODIUM 136 mmol/L (137-145)
--- NOTE | 2022-03-11 11:21 | XRAY ---
Indication: viability. Two-dimensional OB ultrasound performed. Comparison: None for this Single intrauterine gestational sac with presence of a single pole. Mean crown-rump length measures 4.43 cm corresponding to 11 weeks 2 days. heart rate 165 BPM. No abnormal subchorionic fluid. Left and right ovaries are sonographically unremarkable. Impression: Single viable intrauterine measuring 11 weeks 2 days. Expected date confinement is September 28, 2022. No acute findings.
[2022-03-11 11:23] LABS: Bacteria Moderate; Clue Cells None Seen; Red Blood Cells Moderate; Trichomonas None Seen; White Blood Cells Few; Yeast None Seen
[2022-03-11 11:24] LABS: Appearance Clear (Clear); Bacteria Rare /HPF (None Seen); Bilirubin Negative (Negative); Blood Small (Negative); Epithelial Cells Few /HPF (None Seen); Glucose, Urine Negative (Negative); Ketones Trace (Negative); Leukocyte Esterase Negative (Negative); Nitrite Negative (Negative); Ph 5.5 (4.6-8.0); Protein,Urine Dip 30 (Negative); RBC 0-2 /HPF (0-5); Specific Gravity >=1.030 (1.005-1.030)
[2022-03-11 11:25] LABS: ADD URINE CULTURE? YES (NO)
[2022-03-11 11:32] LABS: ABO TYPING B; Antibody Screen NEGATIVE (NEGATIVE); RH TYPING POSITIVE
[2022-03-11 11:35] LABS: Absolute Neutrophil Ct (ANC) 4.45 x10^3/uL (1.4-6.9); Basophil (Absolute #) 0.03 x10^3/uL (0-0.4); Eosinophil % 0.9 % (0.00-5.0); Eosinophil (Absolute #) 0.06 x10^3/uL (0-0.5); Hematocrit 39.1 % (35-47); Hemoglobin 13.6 g/dL (12.0-16.0); Lymphocyte (Absolute #) 1.79 x10^3/uL (1.0-4.6); Lymphocytes % 26.5 % (24.0-44.0); Mean Cell Volume 89.9 fL (78-100); Mean Corpuscular Hemoglobin 31.3 pg (26-32); Mean Corpuscular Hgb Concent. 34.8 g/dL (32-36); Mean Platelet Volume 10.1 fL (7.5-11.0); Monocytes % 5.9 % (0.0-12.0); Neutrophil % 65.9 % (36.0-66.0); Platelet Count 253 x10^3/uL (150-450); Red Blood Count 4.35 x10^6/uL (4.1-5.4); Red Cell Distribution Width 11.9 % (11.5-14.0); White Blood Count 6.8 x10^3/uL (4.0-10.5)
[2022-03-11 12:36] LABS: CHLAMYDIA DNA NOT DETECTED (NEGATIVE); GC DNA Probe NOT DETECTED (NEGATIVE)
[2022-03-11 12:42] VITALS: BP 115/78; PULSE 95
== END 2022-03-11 12:48 | disposition home or self-care (01) ==
LOC: ED 10:20
DX: O23.41 Unspecified infection of urinary tract in pregnancy, first trimester (principal); N39.0 Urinary tract infection, site not specified; Z3A.11 11 weeks gestation of pregnancy; O26.891 Other specified pregnancy related conditions, first trimester; N89.8 Other specified noninflammatory disorders of vagina; Z79.899 Other long term (current) drug therapy
CPT/HCPCS: 36415; 76801; 80053; 81001; 84702; 85025; 86850; 86900; 86901; 87086; 87210; 87491; 87591; 99283

== ENCOUNTER 2022-05-30 11:01 | Emergency (ER) | payer OTHER ==
[2022-05-30 11:17] VITALS: BP 114/77
[2022-05-30 11:35] LABS: Absolute Neutrophil Ct (ANC) 4.77 x10^3/uL (1.4-6.9); BASOPHIL % 0.3 % (0.0-0.4); Basophil (Absolute #) 0.02 x10^3/uL (0-0.4); Eosinophil % 1.3 % (0.00-5.0); Eosinophil (Absolute #) 0.09 x10^3/uL (0-0.5); Hematocrit 34.9 % (35-47); Hemoglobin 12.3 g/dL (12.0-16.0); IMMATURE GRAN # 0.09 x10^3u/L (0.00-0.03); IMMATURE GRAN % 1.3 % (0.00-0.4); Lymphocyte (Absolute #) 1.54 x10^3/uL (1.0-4.6); Lymphocytes % 21.9 % (24.0-44.0); Mean Cell Volume 93.1 fL (78-100); Mean Corpuscular Hemoglobin 32.8 pg (26-32); Mean Corpuscular Hgb Concent. 35.2 g/dL (32-36); Monocyte (Absolute #) 0.53 x10^3/uL (0.0-1.3); Monocytes % 7.5 % (0.0-12.0); Neutrophil % 67.7 % (36.0-66.0); Platelet Count 211 x10^3/uL (150-450); Red Blood Count 3.75 x10^6/uL (4.1-5.4); Red Cell Distribution Width 12.9 % (11.5-14.0)
[2022-05-30 12:03] LABS: ALBUMIN 3.5 g/dL (3.5-5.0); ALKALINE PHOSPHATASE 78 U/L (38-126); ANION GAP 12.4 MEQ/L (5-15); BLOOD UREA NITROGEN 8 mg/dL (7-17); CHLORIDE 108 mmol/L (98-107); Calcium 8.3 mg/dL (8.4-10.2); Carbon Dioxide 22 mmol/L (22-30); Creatinine 1 0.47 mg/dL (0.52-1.04); EST GLOMERULAR FILTRATION RATE > 60.0 ML/MIN; Glucose 108 mg/dL (74-106); Potassium 3.8 mmol/L (3.5-5.1); SGOT/AST 18 U/L (14-36); SGPT/ALT 13 U/L (0-35); SODIUM 138 mmol/L (137-145); Total Protein 6.7 g/dL (6.3-8.2)
[2022-05-30 12:05] VITALS: PULSE 88; O2SAT 98
[2022-05-30 12:25] LABS: Appearance Error (Clear); Bacteria Rare /HPF (None Seen); Bilirubin Negative (Negative); Blood Negative (Negative); Epithelial Cells Moderate /HPF (None Seen); Glucose, Urine Negative (Negative); Hyaline Casts NONE SEEN /LPF (0-2); Ketones Negative (Negative); Leukocyte Esterase Moderate (Negative); Nitrite Negative (Negative); Ph 6.5 (4.6-8.0); Protein,Urine Dip Negative (Negative); RBC 0-2 /HPF (0-5); Specific Gravity 1.025 (1.005-1.030)
[2022-05-30 12:28] LABS: ADD URINE CULTURE? NO (NO)
[2022-05-30] MEDS ORDERED: NORCO 5/325 MG PO ONE (12:30)
[2022-05-30] MEDS ORDERED: NORCO 5/325 MG ONE (12:33)
--- NOTE | 2022-05-30 12:39 | ERPHSYRPT ---
- History of Present Illness Source: patient Exam Limitations: no limitations Patient Subjective Stated Complaint: C/O headache for 4 days Triage Nursing Assessment: Patient ambulated back to ER without difficulties carrying one of her children. She is alert and oriented. No SOB. Skin tone normal. Physician History: 22 yo EDILSON who is 22wks presents w a global headache x4 days. Pain is described as throbbing and 3/10 on scale. She denies fever/head trauma/nausea/vomiting/focal weakness/visual impairment/focal weakness. Nothing makes the pain better or worse. Timing/Duration: day(s) (4 days) Quality: throbbing Head Pain Location: global Severity of Pain-Max: moderate Severity of Pain-Current: mild Recent Head Trauma: no recent headache/trauma Modifying Factors: Improves With: other (Nothing makes better or worse) Associated Symptoms: denies symptoms Previous symptoms: no prior history Allergies/Adverse Reactions: No Known Drug Allergies Allergy (Verified 05/30/22 11:09) Home Medications: Levothyroxine Sodium 25 Mcg [Synthroid 25 Mcg] 1 tab PO DAILY 03/11/22 [History] Pnv No.121/Iron/Folic Acid [ Multivitamin Tablet] 1 tab PO DAILY 03/11/22 [History] Sertraline HCl 50 mg [Zoloft 50 mg Tablet] 1 tab PO DAILY 05/30/22 [History] Hx Tetanus, Diphtheria Vaccination/Date Given: Yes Hx Influenza Vaccination/Date Given: No Hx Pneumococcal Vaccination/Date Given: No Immunizations Up to Date: Yes Travel Risk - International Travel Have you traveled outside of the country in past 3 weeks: No - Coronavirus Screening Are you exhibiting any of the following symptoms?: Yes Symptoms: Headaches/Body Aches/Fatigue - Vaccine Status Have you recieved a Covid-19 vaccination: Yes 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 - Review of Systems Constitutional: No Symptoms Eyes: No Symptoms Ears, Nose, & Throat: No Symptoms Respiratory: No Symptoms Cardiac: No Symptoms Abdominal/Gastrointestinal: No Symptoms Genitourinary Symptoms: No Symptoms Musculoskeletal: No Symptoms Skin: No Symptoms Neurological: No Symptoms, Headache Psychological: No Symptoms Endocrine: No Symptoms Hematologic/Lymphatic: No Symptoms Immunological/Allergic: No Symptoms - Past Medical History Pertinent Past Medical History: Yes Neurological History: No Pertinent History ENT History: No Pertinent History Cardiac History: No Pertinent History Respiratory History: No Pertinent History Endocrine Medical History: No Pertinent History Musculoskeletal History: No Pertinent History GI Medical History: No Pertinent History History: No Pertinent History Psycho-Social History: Depression Female Reproductive Disorders: No Pertinent History Other Medical History: thyroid issue that just started with most recent , 2 miscarriages - Past Surgical History Past Surgical History: Yes Neuro Surgical History: No Pertinent History Cardiac: No Pertinent History Respiratory: No Pertinent History Gastrointestinal: No Pertinent History Genitourinary: No Pertinent History Musculoskeletal: No Pertinent History Female Surgical History: Dilation & Curettage Other Surgical History: wisdom teeth - Social History Smoking Status: Never smoker Exposure to second hand smoke: No Drug Use: none Patient Lives Alone: No - Female History Hx Now: Yes (Dr. Wells) Gestational Age: 22 weeks - Nursing Vital Signs Nursing Vital Signs: Initial Vital Signs Temperature 97.6 F 05/30/22 11:10 Pulse Rate 98 H 05/30/22 11:10 Respiratory Rate 18 05/30/22 11:10 Blood Pressure 114/77 05/30/22 11:10 O2 Sat by Pulse Oximetry 97 05/30/22 11:10 Pain Scale Pain Intensity 4 WNL - Physical Exam General Appearance: no apparent distress Eye Exam: PERRL/EOMI, eyes nml inspection Ears, Nose, Throat Exam: normal ENT inspection, TMs normal, pharynx normal, moist mucous membranes Neck Exam: normal inspection, non-tender, supple, full range of motion, No meningismus, No mass, No Brudzinski, No Kernig's Respiratory Exam: normal breath sounds, lungs clear, airway intact Cardiovascular Exam: regular rate/rhythm, normal heart sounds, normal peripheral pulses, capillary refill <2 sec, No murmur Gastrointestinal/Abdominal Exam: soft (), No tenderness Back Exam: normal inspection, normal range of motion, No CVA tenderness, No vertebral tenderness Extremity Exam: normal inspection, normal range of motion Mental Status Exam: alert, oriented x 3, 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 Exam: normal hearing, normal speech, PERRL, No abnormal eye position, No abnormal gag reflex, No abnormal pupil position, No abnormal speech, No facial asymmetry Coordination/Gait Exam: normal finger to nose, normal gait, normal cerebellar function, negative Romberg's sign Motor/Sensory Exam: no motor deficit, no sensory deficit, no pronator drift, negative Babinski's sign DTR Exam: bicep (R): 2+, bicep (L): 2+ Skin Exam: normal color, warm, dry, No rash Lymphatic Exam: No adenopathy SpO2 Interpretation: normal SpO2: 98 O2 Delivery: Room Air - Course Nursing assessment & vital signs reviewed: Yes Ordered Tests: Active Orders 24 hr Category Date Time Status CBC W DIFF Stat Lab 05/30/22 11:30 Completed CMP Stat Lab 05/30/22 11:30 Completed UA W/RFX UR CULTURE Stat Lab 05/30/22 12:07 Completed Medication Summary Discontinued Medications Generic Name Dose Route Start Last Admin Trade Name Freq PRN Reason Stop Dose Admin Hydrocodone Bitart/Acetaminophen 1 tab 05/30/22 12:30 05/30/22 12:34 Hydrocodone/Apap 5/325 1 Tab Tablet PO 05/30/22 12:31 1 tab STAT ONE Administration Hydrocodone Bitart/Acetaminophen Confirm 05/30/22 12:33 Hydrocodone/Apap 5/325 1 Tab Tablet Administered 05/30/22 12:34 Dose 1 tab .ROUTE .MySQUAR ONE Lab/Rad Data: Laboratory Result Diagrams 05/30/22 11:30 05/30/22 11:30 Laboratory Results 05/30/22 05/30/22 05/30/22 Range/Units 12:07 11:30 11:30 WBC 7.0 (4.0-10.5) x10^3/uL RBC 3.75 L (4.1-5.4) x10^6/uL Hgb 12.3 (12.0-16.0) g/dL Hct 34.9 L (35-47) % MCV 93.1 (78-100) fL MCH 32.8 H (26-32) pg MCHC 35.2 (32-36) g/dL RDW 12.9 (11.5-14.0) % Plt Count 211 (150-450) x10^3/uL MPV 10.0 (7.5-11.0) fL Gran % 67.7 H (36.0-66.0) % Immature Gran % (Auto) 1.3 H (0.00-0.4) % Nucleat RBC Rel Count 0.0 (0.00-0.1) % Eos # (Auto) 0.09 (0-0.5) x10^3/uL Immature Gran # (Auto) 0.09 H (0.00-0.03) x10^3u/L Absolute Lymphs (auto) 1.54 (1.0-4.6) x10^3/uL Absolute Monos (auto) 0.53 (0.0-1.3) x10^3/uL Absolute Nucleated RBC 0.00 (0.00-0.01) x10^3u/L Lymphocytes % 21.9 L (24.0-44.0) % Monocytes % 7.5 (0.0-12.0) % Eosinophils % 1.3 (0.00-5.0) % Basophils % 0.3 (0.0-0.4) % Absolute Granulocytes 4.77 (1.4-6.9) x10^3/uL Basophils # 0.02 (0-0.4) x10^3/uL Sodium 138 (137-145) mmol/L Potassium 3.8 (3.5-5.1) mmol/L Chloride 108 H (98-107) mmol/L Carbon Dioxide 22 (22-30) mmol/L Anion Gap 12.4 (5-15) MEQ/L BUN 8 (7-17) mg/dL Creatinine 0.47 L (0.52-1.04) mg/dL Estimated GFR > 60.0 ML/MIN Glucose 108 H (74-106) mg/dL Calcium 8.3 L (8.4-10.2) mg/dL Total Bilirubin 0.30 (0.2-1.3) mg/dL AST 18 (14-36) U/L ALT 13 (0-35) U/L Alkaline Phosphatase 78 (38-126) U/L Serum Total Protein 6.7 (6.3-8.2) g/dL Albumin 3.5 (3.5-5.0) g/dL Urine Color Yellow (Yellow) Urine Appearance Error (Clear) Urine pH 6.5 (4.6-8.0) Ur Specific [place] 1.025 (1.005-1.030) Urine Protein Negative (Negative) Urine Glucose (UA) Negative (Negative) mg/dL Urine Ketones Negative (Negative) Urine Blood Negative (Negative) Urine Nitrite Negative (Negative) Urine Bilirubin Negative (Negative) Urine Urobilinogen 1.0 A (0.2) mg/dL Ur Leukocyte Esterase Moderate A (Negative) U Hyaline Cast (Auto) NONE SEEN (0-2) /LPF Urine Microscopic RBC 0-2 (0-5) /HPF Urine Microscopic WBC 6-10 A (0-5) /HPF Ur Epithelial Cells Moderate A (None Seen) /HPF Urine Bacteria Rare A (None Seen) /HPF Urine Culture Reflexed NO (NO) - Progress Progress Note: 05/30/22 12:36 Nursing note and vital signs reviewed No food or housing insecurities noted BP excellent during entire stay Serial neuro exams normal during entire stay, and pt in NAD during entire stay Labs reviewed and shared w pt. 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 Wells in 1-2 days Macrobid twice a day for 3 days Return to ER for increasing pain or focal weakness Prescriptions: Nitrofurantoin Monohyd/M-Cryst [Macrobid 100 mg Capsule] 100 mg PO BID 3 Days #6 cap
== END 2022-05-30 12:49 | disposition home or self-care (01) ==
LOC: ED 11:01
DX: O23.42 Unspecified infection of urinary tract in pregnancy, second trimester (principal); N39.0 Urinary tract infection, site not specified; Z3A.22 22 weeks gestation of pregnancy; R51.9 Headache, unspecified; Z79.899 Other long term (current) drug therapy
CPT/HCPCS: 36415; 80053; 81001; 85025; 99282; A9270-GY

== ENCOUNTER 2022-09-23 12:11 | Inpatient (IN) | payer OTHER ==
[2022-09-24] MEDS ORDERED: Lactated Ringers 2,000 ML IV ONE ×2 (05:24→08:25)
[2022-09-24] MEDS ORDERED: TYLENOL EXTRA STRENGTH 500 MG PO PRN (05:48)
[2022-09-24] MEDS ORDERED: HOLD NARCOTIC ANALGESICS AND SEDATIVES X24 HR MC PRN (05:48)
[2022-09-24] MEDS ORDERED: Lactated Ringers 1,000 ML IV ONE (05:48)
[2022-09-24] MEDS ORDERED: Zofran 4 MG/2 ML VIAL IV PRN (05:48)
[2022-09-24] MEDS ORDERED: BENADRYL 50 MG/ML IV PRN (05:48)
[2022-09-24] MEDS ORDERED: Nubain 10 MG/ML IV PRN (05:48)
[2022-09-24] MEDS ORDERED: CLARITIN 10 MG PO PRN (05:48)
[2022-09-24] MEDS ORDERED: PERCOCET TABLET 5/325MG PO PRN (05:48)
[2022-09-24] MEDS ORDERED: LANSINOH 40 GM TOP PRN (05:48)
[2022-09-24] MEDS ORDERED: Pepcid 20 MG VIAL IV SCH (06:00)
[2022-09-24] MEDS ORDERED: SOD CITRATE-CITRIC ACID SOLN PO SCH (06:00)
[2022-09-24] MEDS ORDERED: CEFAZOLIN 2 GM-D5W BAG** 2 GM/50 ML ML IV SCH (06:00)
[2022-09-24] MEDS ORDERED: Reglan 10 MG/2 ML IV SCH (06:00)
[2022-09-24] MEDS ORDERED: Lactated Ringers 1,000 ML IV SCH (06:00)
[2022-09-24] MEDS ORDERED: Dextrose 5%-Lr IV Solution 1000 ML 1,000 ML IV SCH (06:00)
[2022-09-24 06:32] LABS: Hematocrit 35.9 % (35-47); Hemoglobin 12.1 g/dL (12.0-16.0); Mean Corpuscular Hemoglobin 31.3 pg (26-32); Mean Corpuscular Hgb Concent. 33.7 g/dL (32-36); Mean Platelet Volume 10.8 fL (7.5-11.0); Platelet Count 185 x10^3/uL (150-450); Red Blood Count 3.86 x10^6/uL (4.1-5.4); Red Cell Distribution Width 12.8 % (11.5-14.0); White Blood Count 9.3 x10^3/uL (4.0-10.5)
[2022-09-24 06:47] LABS: INR 0.9 (0.8-3.0); PROTIME 9.9 SECONDS (9.4-12.5); PTT 26.2 SECONDS (25.1-36.5)
[2022-09-24] MEDS ORDERED: Zofran 4 MG/2 ML VIAL IV ONE (06:51)
[2022-09-24] MEDS ORDERED: Pitocin 10 UNITS/ML IV ONE (06:51)
[2022-09-24] MEDS ORDERED: Astramorph-Pf 5 MG/10 ML IJ ONE (06:51)
[2022-09-24] MEDS ORDERED: Marcaine 0.5%/Epinephrine 10 ML IJ ONE (06:51)
[2022-09-24] MEDS ORDERED: PHENYLEPHRINE HCL IJ ONE (06:51)
[2022-09-24 06:54] LABS: Amphetamine,Urine NEGATIVE (NEGATIVE); Barbiturate,Urine NEGATIVE (NEGATIVE); Benzodiazepine,Urine NEGATIVE (NEGATIVE); Cocaine,Urine NEGATIVE (NEGATIVE); Methadone,Urine NEGATIVE (NEGATIVE); Opiate,Urine NEGATIVE (NEGATIVE); PCP,Urine NEGATIVE (NEGATIVE); THC,Urine NEGATIVE (NEGATIVE)
[2022-09-24 07:14] LABS: ABO TYPING B; Antibody Screen NEGATIVE (NEGATIVE); RH TYPING POSITIVE
[2022-09-24] MEDS ORDERED: DEMEROL 50 MG ONE (09:21)
[2022-09-24] MEDS ORDERED: Zofran 4 MG/2 ML VIAL ONE (09:28)
[2022-09-24] MEDS ORDERED: Compazine 10 MG/2 ML ONE (09:43)
[2022-09-24 10:12] LABS: Hematocrit 31.4 % (35-47); Hemoglobin 10.5 g/dL (12.0-16.0)
[2022-09-24] MEDS ORDERED: Adacel Vial IM ONE (12:00)
[2022-09-24 14:47] LABS: Appearance Clear (Clear); Bacteria None Seen /HPF (None Seen); Bilirubin Negative (Negative); Blood Negative (Negative); Epithelial Cells None Seen /HPF (None Seen); Glucose, Urine Negative (Negative); Ketones Negative (Negative); Leukocyte Esterase Negative (Negative); Nitrite Negative (Negative); Protein,Urine Dip Trace (Negative); RBC 0-2 /HPF (0-5); Specific Gravity 1.015 (1.005-1.030); Urobilinogen 0.2 mg/dL (0.2)
[2022-09-24] MEDS: CEFAZOLIN 2 GM-D5W BAG** 2 GM/50 ML ML IV SCH (17:38)
[2022-09-24] MEDS: ZOLOFT 50 MG TABLET PO SCH (18:18)
[2022-09-24] MEDS ORDERED: Docusate Sodium 100 MG ONE (21:56)
[2022-09-24] MEDS: Docusate Sodium 100 MG PO SCH (21:58)
[2022-09-24] MEDS: THERAGRAN MULTIVITAMIN PO SCH (23:40)
[2022-09-25] MEDS: CEFAZOLIN 2 GM-D5W BAG** 2 GM/50 ML ML IV SCH (01:22)
[2022-09-25] MEDS: MOTRIN 400 MG PO PRN ×2 (01:40→13:02)
[2022-09-25 04:52] LABS: Absolute Neutrophil Ct (ANC) 8.26 x10^3/uL (1.4-6.9); BASOPHIL % 0.2 % (0.0-0.4); Basophil (Absolute #) 0.02 x10^3/uL (0-0.4); Eosinophil % 0.5 % (0.00-5.0); Eosinophil (Absolute #) 0.05 x10^3/uL (0-0.5); Hematocrit 27.5 % (35-47); Hemoglobin 9.6 g/dL (12.0-16.0); IMMATURE GRAN # 0.08 x10^3u/L (0.00-0.03); IMMATURE GRAN % 0.8 % (0.00-0.4); Lymphocyte (Absolute #) 1.38 x10^3/uL (1.0-4.6); Lymphocytes % 13.1 % (24.0-44.0); Mean Corpuscular Hemoglobin 32.1 pg (26-32); Mean Corpuscular Hgb Concent. 34.9 g/dL (32-36); Mean Platelet Volume 10.9 fL (7.5-11.0); Monocyte (Absolute #) 0.77 x10^3/uL (0.0-1.3); Monocytes % 7.3 % (0.0-12.0); Neutrophil % 78.1 % (36.0-66.0); Platelet Count 152 x10^3/uL (150-450); Red Blood Count 2.99 x10^6/uL (4.1-5.4); Red Cell Distribution Width 13.2 % (11.5-14.0); White Blood Count 10.6 x10^3/uL (4.0-10.5)
--- NOTE | 2022-09-25 07:41 | PCM.NOTE ---
Date and Time: 09/25/22737 Subjective Assessment: pod 1 sp csection pt resting and doing well able to ambulate and tolerate diet vss afebrile abd; soft incision c/d/intact uterus; firm lochia; mild hgb; 9 a/p sp csection with tubal sterilization doing well anticipate discharge tomorrow OBJECTIVE DATA Vital Signs: Vital Signs - 24 hr Temp Pulse Resp BP Pulse Ox 09/25/22 02:00 98.9 F 75 20 104/59 97 09/24/22 21:00 98.7 F 95 H 20 130/59 100 09/24/22 20:00 100 09/24/22 19:00 98 09/24/22 18:00 100 09/24/22 17:00 100 09/24/22 16:00 98 09/24/22 15:00 100 09/24/22 14:00 97.7 F 81 18 106/58 100 09/24/22 13:00 98.4 F 84 18 104/59 100 09/24/22 12:00 76 18 94/55 99 09/24/22 11:45 96 H 18 96/47 99 09/24/22 11:30 77 18 91/53 98 09/24/22 11:15 88 18 94/53 99 09/24/22 11:00 97.8 F 87 18 98/53 100 Pain Assessment - Last Documented Pain Intensity [Anterior] 2 Pain Intensity 1 Pain Scale Used 0-10 Pain Scale Intake and Output: Intake & Output 09/22/22 09/23/22 09/24/22 09/25/22 11:59 11:59 11:59 11:59 Intake Total 3248 Output Total 800 Balance 2448 Weight 97.976 kg Lab Results: Lab Results-Last 24 Hours 09/24/22 09/24/22 09/25/22 Range/Units 08:23 10:09 04:32 WBC 10.6 H (4.0-10.5) x10^3/uL RBC 2.99 L (4.1-5.4) x10^6/uL Hgb 10.5 L 9.6 L (12.0-16.0) g/dL Hct 31.4 L 27.5 L (35-47) % MCV 92.0 (78-100) fL MCH 32.1 H (26-32) pg MCHC 34.9 (32-36) g/dL RDW 13.2 (11.5-14.0) % Plt Count 152 (150-450) x10^3/uL MPV 10.9 (7.5-11.0) fL Gran % 78.1 H (36.0-66.0) % Immature Gran % (Auto) 0.8 H (0.00-0.4) % Nucleat RBC Rel Count 0.0 (0.00-0.1) % Eos # (Auto) 0.05 (0-0.5) x10^3/uL Immature Gran # (Auto) 0.08 H (0.00-0.03) x10^3u/L Absolute Lymphs (auto) 1.38 (1.0-4.6) x10^3/uL Absolute Monos (auto) 0.77 (0.0-1.3) x10^3/uL Absolute Nucleated RBC 0.00 (0.00-0.01) x10^3u/L Lymphocytes % 13.1 L (24.0-44.0) % Monocytes % 7.3 (0.0-12.0) % Eosinophils % 0.5 (0.00-5.0) % Basophils % 0.2 (0.0-0.4) % Absolute Granulocytes 8.26 H (1.4-6.9) x10^3/uL Basophils # 0.02 (0-0.4) x10^3/uL Urine Color Yellow (Yellow) Urine Appearance Clear (Clear) Urine pH 7.0 (4.6-8.0) Ur Specific [place] 1.015 (1.005-1.030) Urine Protein Trace A (Negative) Urine Glucose (UA) Negative (Negative) mg/dL Urine Ketones Negative (Negative) Urine Blood Negative (Negative) Urine Nitrite Negative (Negative) Urine Bilirubin Negative (Negative) Urine Urobilinogen 0.2 (0.2) mg/dL Ur Leukocyte Esterase Negative (Negative) U Hyaline Cast (Auto) 3-5 A (0-2) /LPF Urine Microscopic RBC 0-2 (0-5) /HPF Urine Microscopic WBC 6-10 A (0-5) /HPF Ur Epithelial Cells None Seen (None Seen) /HPF Urine Bacteria None Seen (None Seen) /HPF Multi-Disciplinary Progress Notes: Multi-Disciplinary Progress Notes 09/24/22 08:33 (created 09/24/22 09:00) Respiratory Note by Dixie Barajas Baby born via . Baby crying upon delivery. Baby brought to warmer and dried and stimulated. Suctioned 6ml from oral cavity. 9 at 1 minute and 10 at 5 minutes. No RT nterventions indicated. Initialized on 09/24/22 09:00 - END OF NOTE Assessment/Plan (1) S/P primary low transverse Current Visit: Yes Status: Acute Code(s): Z98.891 - HISTORY OF UTERINE SCAR FROM PREVIOUS SURGERY (2) H/O tubal ligation Current Visit: Yes Status: Acute Code(s): Z98.51 - TUBAL LIGATION STATUS
[2022-09-25] MEDS ORDERED: ENOXAPARIN SODIUM SQ ONE (08:00)
[2022-09-25] MEDS: ZOLOFT 50 MG TABLET PO SCH (08:47)
[2022-09-25] MEDS: Mylicon 80MG PO PRN ×3 (09:55→20:05)
[2022-09-25] MEDS: THERAGRAN MULTIVITAMIN PO SCH (09:55)
[2022-09-25] MEDS: FERREX 150 PO SCH (09:56)
[2022-09-25] MEDS: Docusate Sodium 100 MG PO SCH ×2 (09:56→21:10)
[2022-09-25] MEDS: NORCO 5/325 MG PO PRN ×3 (09:56→20:07)
[2022-09-25] MEDS ORDERED: [UNRECOGNIZED DRUG - REMARK] PO SCH (10:00)
--- NOTE | 2022-09-25 10:07 | OP ---
SURGERY DATE/TIME: 09/24/2022 0808 PREOPERATIVE DIAGNOSIS: Intrauterine at 39 weeks and 2 days gestation with breech presentation, multiparity desiring tubal sterilization. POSTOPERATIVE DIAGNOSIS: Intrauterine at 39 weeks and 2 days gestation with breech presentation, multiparity desiring tubal sterilization. PROCEDURES: 1) Primary section, low flap transverse uterine incision, Pfannenstiel skin incision. 2) Bilateral tubal sterilization. SURGEON: Ishan Wells D.O. MEDICAL CLAIMS REPRESENTATIVE: Jenny Ni, surgical rn. ANESTHESIA: Spinal. ESTIMATED BLOOD LOSS: 415 cc. COMPLICATIONS: None. INDICATIONS: The risks, benefits, indications and alternatives of the procedure were reviewed with the patient prior to procedure. The patient understood the risk of infection, bleeding, bowel injury, bladder injury, ureteral injury, pelvic infection and thromboembolic disorder associated with this surgery and desires to have this surgery as a possible mean to alleviate her current medical condition. DESCRIPTION OF PROCEDURE AND FINDINGS: At this point the patient is taken to the operating room. She was placed in the supine position, given her spinal anesthesia which was found to be adequate. She was then prepared and draped in normal sterile fashion in the dorsal supine position with a leftward tilt. A Pfannenstiel skin incision is made with scalpel and carried through to the underlying layer of the fascia with a Bovie. The fascia was then incised in the midline and the incision carried laterally with Harp scissors. The superior aspect of the fascial incision was then grasped with Santosh clamps elevated and the underlying rectus muscles dissected off bluntly. Attention is then turned to the inferior aspect of this incision which in similar fashion was grasped, tented up with Santosh clamps and the rectus muscles dissected off bluntly. The rectus muscles were in the midline and the peritoneum identified, tented up and entered sharply with Metzenbaum scissors. The peritoneal incision was then extended superiorly and inferiorly with good visualization of the bladder. A bladder blade was then inserted and the vesicouterine peritoneum identified grasped with a pickup and entered sharply with Metzenbaum scissors. This incision was then extended laterally and bladder flap created digitally. The bladder blade is then reinserted and the lower uterine segment incised in transverse fashion with a scalpel. The uterine incision was then extended laterally with bandage scissors. A bladder blade was then removed. At this point the buttocks were then removed first followed by the lower extremities, the trunk and then finally the head. The nose and mouth were suctioned with bulb suction and the cord clamped and cut. The was then handed off to the awaiting nurses. The placenta was then removed manually. The uterus exteriorized and cleared of all clots and debris. The uterine incision was repaired with 1-0 chromic in a running locked fashion. A second layer of the same suture was used to obtain excellent hemostasis. From this point a Michelle clamp was placed on the right fallopian tube and was grasped approximately 4 cm from the cornual region. A 2 cm segment of tube was then ligated with free tie of plain gut and excised. Good hemostasis was noted. The same procedure was performed on the left tube where a 2 cm segment of the tube was ligated with free tie of plain gut and the tube excised. Again good hemostasis was noted. From this point the uterus is then returned to the abdomen. The gutters were cleared of all clots and the peritoneal muscles closed in interrupted fashion using 2-0 chromic suture. The fascia was re-approximated with 0 Vicryl in a running fashion. The subcutaneous layer was closed with 3-0 Vicryl suture and the skin was closed with absorbable ward called INSORB. The patient delivered live baby boy at 0833 hours. All instruments and laps were accounted for x2.
[2022-09-26] MEDS: NORCO 5/325 MG PO PRN ×2 (02:05→10:43)
[2022-09-26] MEDS: MOTRIN 400 MG PO PRN ×2 (02:06→11:56)
[2022-09-26] MEDS: THERAGRAN MULTIVITAMIN PO SCH (09:27)
[2022-09-26] MEDS: ZOLOFT 50 MG TABLET PO SCH (09:27)
[2022-09-26] MEDS: FERREX 150 PO SCH (09:27)
[2022-09-26] MEDS: Docusate Sodium 100 MG PO SCH (09:27)
--- NOTE | 2022-09-26 11:41 | PCM.NOTE ---
Date and Time: 09/26/22 1140 Subjective Assessment: pod 2 sp csection pt resting and doing well able to ambulate and tolerate diet. vss afebrile abd; soft incision c/d/intact uterus; firm lochia; mild a/p sp csection pod 2 dc home today fu office in 2 wks OBJECTIVE DATA Vital Signs: Vital Signs - 24 hr Temp Pulse Resp BP Pulse Ox 09/26/22 02:00 97.8 F 85 18 117/64 97 09/25/22 18:53 99.2 F 84 18 98/54 97 09/25/22 15:00 97.8 F 20 98 Pain Assessment - Last Documented Pain Intensity [Anterior] 6 Pain Intensity 5 Pain Scale Used 0-10 Pain Scale Intake and Output: Intake & Output 09/23/22 09/24/22 09/25/22 09/26/22 11:59 11:59 11:59 11:59 Intake Total 3248 1950 Output Total 800 Balance 2448 1950 Weight 97.976 kg Assessment/Plan (1) S/P primary low transverse Current Visit: Yes Status: Acute Code(s): Z98.891 - HISTORY OF UTERINE SCAR FROM PREVIOUS SURGERY (2) H/O tubal ligation Current Visit: Yes Status: Acute Code(s): Z98.51 - TUBAL LIGATION STATUS
--- NOTE | 2022-09-26 11:46 | PCM.DS ---
Discharge Summary Date of Admission: 09/24/22 04:59 Admitting Physician: DARSHAN AYALA DO Consults: Consults on Case 09/24/22 11:27 Navigation ONCE Primary Care Provider: NO FAMILY DOCTOR Allergies Allergies No Known Drug Allergies Allergy (Verified 05/30/22 11:09) Hospital Summary - Hospital Course Hospital Course: pt admitted on september 24 and underwent primary csection with tubal sterilization secondary to breech presentation and underwent procedure without complication. during postop period did well was able to ambulate and tolerate diet. incision healing well, stable hgb at 9 and at this time stable for discharge. all questions answered to her satisfaction and was given percocet #20 and ibuprofen was given for pain management. - Vitals & Intake/Output Vital Signs: Vital Signs Temperature 97.8 F 09/26/22 02:00 Pulse Rate 85 09/26/22 02:00 Respiratory Rate 18 09/26/22 02:00 Blood Pressure 117/64 09/26/22 02:00 O2 Sat by Pulse Oximetry 97 09/26/22 02:00 Intake & Output: Intake & Output 09/23/22 09/24/22 09/25/22 09/26/22 11:59 11:59 11:59 11:59 Intake Total 3248 1950 Output Total 800 Balance 2448 1950 Weight 97.976 kg - Lab Result Diagrams: 09/25/22 04:32 Micro Results-Entire Visit: Microbiology 09/24/22 08:23 Urine Culture - Final Catherized NO GROWTH - Procedures and Test Procedures and Tests throughout Hospitalization: Therapy Orders & Screens 09/24/22 09:02 Standby STAT Comment: Diagnosis: Post Op Final Diagnosis/Problem List - Final Discharge Diagnosis/Problem (1) S/P primary low transverse Current Visit: Yes Status: Acute Code(s): Z98.891 - HISTORY OF UTERINE SCAR FROM PREVIOUS SURGERY (2) H/O tubal ligation Current Visit: Yes Status: Acute Code(s): Z98.51 - TUBAL LIGATION STATUS - Discharge Disposition: Home, Self-Care Condition: Stable Prescriptions: New Ibuprofen 600 mg PO Q6H PRN PRN #46 tablet PRN Reason: Moderate Pain Oxycodone HCl/Acetaminophen [Percocet 5-325 mg Tablet] 1 each PO Q6H PRN PRN #20 tablet MDD 4 PRN Reason: Moderate To Severe Pain No Action Levothyroxine Sodium 25 Mcg [Synthroid 25 Mcg] 1 tab PO DAILY Pnv No.121/Iron/Folic Acid [ Multivitamin Tablet] 1 tab PO DAILY Sertraline HCl 50 mg [Zoloft 50 mg Tablet] 1 tab PO DAILY Follow up with: DOCTOR,NO FAMILY [Primary Care Provider] - DARSHAN AYALA DO [ACTIVE STAFF] - 2 weeks
[2022-09-26 17:04] VITALS: BP 108/63; PULSE 98; RESP 20; TEMP 98.2; O2SAT 98
== END 2022-09-26 13:52 | disposition home or self-care (01) | DRG 785 ==
LOC: OB 09-24 04:59
PROVIDERS: ADMIT Obstetrics & Gynecology; ATTEND Obstetrics & Gynecology
PROC: 10D00Z1 Extraction of Products of Conception, Low, Open Approach (ICD-10-PCS; principal; 2022-09-24)
PROC: 0U570ZZ Destruction of Bilateral Fallopian Tubes, Open Approach (ICD-10-PCS; 2022-09-24)
DX: O32.1XX0 Maternal care for breech presentation, not applicable or unspecified (principal); Z3A.39 39 weeks gestation of pregnancy; Z37.0 Single live birth; Z30.2 Encounter for sterilization; Z20.828 Contact with and (suspected) exposure to other viral communicable diseases
CPT/HCPCS: 36415; 58611; 59514; 62322; 64488; 76937; 76942; 80307; 81001; 85014; 85018; 85025; 85027; 85610; 85730; 86850; 86900; 86901; 87086; 90471; 90715; 94799; J0690; J1200; J1650; J2175; J2274; J2370; J2405; J2590; L0625; A9270-GY